=== PATIENT | male | born 1935 | race Caucasian/White ===

== ENCOUNTER 2017-08-03 19:48 | Inpatient (IN) | payer OTHER ==
[~2017-08-03] VITALS: Ht 167.6 cm; Wt 55.3 kg
--- NOTE | ~2017-08-03 | EKG ---
[address] [place] [address] ELECTROCARDIOGRAM REPORT Name: LISA GAMBLE Room #: 356-P ADM IN M.R.#: [id number] Admission: 08/03/17 Attend Phys: Stevie Mendosa DO Discharge: Date of : 33 Report #: [id number] THIS REPORT FOR: //name// [facility] ED Test Date: 2017-08-03 Test Time: 21:36:13 Pat Name: LISA GAMBLE Department: Room: 356 Gender: M Child Development Director: Amy WIN : 1935 Requested By: Fauzia Rubio Order Number: [id number] MD: Ezra Velasquez Measurements Intervals [place] Rate: 43 P: VT: QRS: 46 QRSD: 99 T: 65 QT: 627 QTc: 531 Interpretive Statements Sinus bradycardia Left ventricular hypertrophy Prolonged QT interval Compared to ECG 07/09/2000 11:53:58 Heart rate has slowed Prolonged QT interval now present Electronically Signed On 08-04-2017 8:14:13 [employer] by Ezra Velasquez [email or web address] <ELECTRONICALLY SIGNED> By: Ezra Velasquez MD, [facility] 01/813 35 35 Ezra Velasquez MD, [facility] /EPI
[2017-08-03 19:50] VITALS: BP 142/69
[2017-08-03 20:16] LABS: ABSOLUTE NEUTROPHILS 6.1 thou/uL (1.4-8.2); BASOPHILS 0.6 % (0.0-2.0); EOSINOPHILS 4.1 % (0.0-3.0); HEMOGLOBIN 11.2 gm/dL (14.0-18.0); LYMPHOCYTES 8.8 % (24.0-44.0); MCH 31.8 pg (26.0-34.0); MCV 93.5 fL (80.0-100.0); MONOCYTES 6.8 % (1.0-8.0); PLATELET COUNT 225 thou/uL (150-400); POLYS 79.7 % (36.0-66.0); RBC 3.53 mil/uL (4.50-6.00); RDW 14.5 % (10.5-14.5); WBC 7.6 thou/uL (4.0-11.0)
[2017-08-03 20:20] LABS: CALCIUM 8.6 mg/dL (8.5-10.1); CREATININE 2.4 mg/dL (0.7-1.3); POTASSIUM 4.3 mmol/L (3.5-5.1)
[2017-08-03 21:06] LABS: URINE BILIRUBIN NEGATIVE (Negative); URINE BLOOD NEGATIVE (Negative); URINE CLARITY CLEAR; URINE COLOR YELLOW; URINE GLUCOSE-RANDOM* NEGATIVE (Negative); URINE KETONES NEGATIVE (Negative); URINE LEUKOCYTES-REFLEX NEGATIVE (Negative); URINE NITRITE-REFLEX NEGATIVE (Negative); URINE PROTEIN (DIPSTICK) 2+ (Negative); URINE UROBILINOGEN 0.2 E.U./dl (0.2-1.0)
[2017-08-03 21:12] LABS: BACTERIA-REFLEX 1-9 Few /HPF (None Seen); CASTS None Seen /LPF (None Seen); CRYSTALS None Seen /LPF (None Seen); SQUAMOUS 0-3 Few /LPF (0-3); URINE RBC None Seen /HPF (0-2); URINE WBC-REFLEX None Seen /HPF (0-5)
[2017-08-03] MEDS ORDERED: NEURONTIN100 MG PO (22:04)
[2017-08-03] MEDS ORDERED: KEFLEX500 M1 PO (22:05)
[2017-08-03] MEDS ORDERED: COREG6.25 MG PO (22:05)
[2017-08-03] MEDS ORDERED: PLAVIX 75 MG TA75 MG PO (22:06)
[2017-08-03] MEDS ORDERED: REMERON15 M2 PO (22:07)
[2017-08-03] MEDS ORDERED: TUMS PO (22:09)
[2017-08-03] MEDS ORDERED: LANTUSSOLASTAR SUBQ (22:12)
[2017-08-03 22:33] VITALS: BP 120/60
[2017-08-03 22:50] VITALS: BP 169/86
[2017-08-04] MEDS ORDERED: VENTOLIN HFA 1818 GM INH (00:34)
[2017-08-04] MEDS ORDERED: ASA81BEC PO (00:36)
[2017-08-04] MEDS ORDERED: ZYRTEC 10 MG TA10 MG PO (00:37)
[2017-08-04] MEDS ORDERED: CLOBETASOL EMOL15 GM TOP (00:38)
[2017-08-04] MEDS ORDERED: MUCINEX600 MG PO (00:39)
[2017-08-04] MEDS ORDERED: PROTONIX40 M1 PO (00:40)
[2017-08-04] MEDS ORDERED: PRAVACHOL20 MG PO (00:41)
[2017-08-04] MEDS ORDERED: TUMS PO (00:41)
[2017-08-04] MEDS ORDERED: INCRUSE ELLI62.5 MCG INH (00:42)
[2017-08-04] MEDS ORDERED: VITAMIN D3400 UNIT PO (00:43)
[2017-08-04 03:45] VITALS: BP 137/66
[2017-08-04 05:31] LABS: CALCIUM 7.8 mg/dL (8.5-10.1); CREATININE 2.1 mg/dL (0.7-1.3); MAGNESIUM 2.1 mg/dL (1.8-2.4); POTASSIUM 4.7 mmol/L (3.5-5.1)
[2017-08-04 05:34] LABS: ALBUMIN 2.6 g/dL (3.4-5.0); DIRECT BILIRUBIN 0.1 mg/dL (<0.1-0.3); TOTAL BILIRUBIN 0.3 mg/dL (<0.1-1.0); TOTAL PROTEIN 6.3 g/dL (6.4-8.2)
[2017-08-04 08:49] VITALS: BP 152/57
[2017-08-04 11:18] VITALS: BP 143/68
[2017-08-04 15:49] VITALS: BP 154/74
[2017-08-04 19:55] VITALS: BP 137/71
[2017-08-05 04:10] VITALS: BP 159/89
[2017-08-05 06:49] LABS: ABSOLUTE NEUTROPHILS 4.6 thou/uL (1.4-8.2); BASOPHILS 0.7 % (0.0-2.0); EOSINOPHILS 13.3 % (0.0-3.0); HEMATOCRIT 32.4 % (42.0-52.0); HEMOGLOBIN 10.7 gm/dL (14.0-18.0); MCH 31.3 pg (26.0-34.0); MCHC 33.1 g/dL (28.0-37.0); MCV 94.5 fL (80.0-100.0); MONOCYTES 7.1 % (1.0-8.0); PLATELET COUNT 192 thou/uL (150-400); POLYS 58.9 % (36.0-66.0); RBC 3.43 mil/uL (4.50-6.00); RDW 14.8 % (10.5-14.5); WBC 7.8 thou/uL (4.0-11.0)
[2017-08-05 07:13] LABS: CREATININE 2.1 mg/dL (0.7-1.3); POTASSIUM 4.2 mmol/L (3.5-5.1)
[2017-08-05 07:47] VITALS: BP 128/83
[2017-08-05 09:57] VITALS: BP 128/83
== END 2017-08-05 10:32 | disposition home or self-care (01) | DRG 637 ==
LOC: ER 19:48 → EROBS 21:46 → 3W 21:46 → ENTRNSPT 08-05 10:17 → EDTRNSPTSTS 08-05 10:21 → 3W 08-05 10:32
PROVIDERS: Emergency Medicine; Family Medicine; Nurse Practitioner Acute Care
DX: E11.649 Type 2 diabetes mellitus with hypoglycemia without coma (principal); E43 Unspecified severe protein-calorie malnutrition; Z68.1 Body mass index [BMI] 19.9 or less, adult; N17.9 Acute kidney failure, unspecified; I25.10 Atherosclerotic heart disease of native coronary artery without angina pectoris; E11.22 Type 2 diabetes mellitus with diabetic chronic kidney disease; I12.9 Hypertensive chronic kidney disease with stage 1 through stage 4 chronic kidney disease, or unspecified chronic kidney disease; N18.3 Chronic kidney disease, stage 3 (moderate); E11.51 Type 2 diabetes mellitus with diabetic peripheral angiopathy without gangrene; F17.210 Nicotine dependence, cigarettes, uncomplicated; Z85.118 Personal history of other malignant neoplasm of bronchus and lung; Z95.820 Peripheral vascular angioplasty status with implants and grafts; Z90.79 Acquired absence of other genital organ(s); Z79.02 Long term (current) use of antithrombotics/antiplatelets; Z79.82 Long term (current) use of aspirin; Z79.4 Long term (current) use of insulin; Z79.899 Other long term (current) drug therapy; Z88.2 Allergy status to sulfonamides
CPT/HCPCS: 10779